=== PATIENT | male | born 1970 | race African-American/Black ===

== ENCOUNTER 2024-01-23 16:35 | Emergency (ER) | payer MEDICAID ==
[~2024-01-23] VITALS: Ht 180.3 cm; Wt 90.0 kg
[2024-01-23 16:53] VITALS: BP 170/104; PULSE 80; RESP 18; TEMP 98
[2024-01-23] MEDS: HYDROCODONE/ACETAMINOPHEN 5/325MG TABLET PO ONE (17:26)
[2024-01-23] MEDS: BACITRACIN ZINC OINT UDPKT TOP ONE (17:28)
[2024-01-23] MEDS: LIDOCAINE HCL/PF 1% 10 MG/ML 5ML VIAL INFIL ONE (18:17)
[2024-01-23] MEDS: TETANUS, DIPHTHERIA, PERTUSSIS VAC/PF 0.5ML (>10YR OLD) IM ONE (18:20)
[2024-01-23] MEDS ORDERED: CEPH500T MT (19:03)
[2024-01-23] MEDS ORDERED: IBUP-2029 MT (19:03)
[2024-01-23] MEDS ORDERED: BO1 TP (19:03)
== END 2024-01-23 19:56 | disposition home or self-care (01) ==
LOC: ER 16:35
DX: S61.211A Laceration without foreign body of left index finger without damage to nail, initial encounter (principal); I10 Essential (primary) hypertension; W26.8XXA Contact with other sharp object(s), not elsewhere classified, initial encounter; Y93.89 Activity, other specified; Y92.89 Other specified places as the place of occurrence of the external cause; Y99.8 Other external cause status
CPT/HCPCS: 73130; 90715; 12004; 90471; 99283; J3490; Z7610 ×2

== ENCOUNTER 2024-01-25 15:41 | Emergency (ER) | payer MEDICAID ==
[~2024-01-25] VITALS: Ht 172.7 cm; Wt 75.0 kg
[~2024-01-25 15:41] MED LIST: BO1 TP; CEPH500T MT; IBUP-2029 MT
[2024-01-25 15:47] VITALS: PULSE 64
[2024-01-25 15:50] VITALS: BP 173/95; RESP 18; TEMP 98.2; O2SAT 99
== END 2024-01-25 19:10 | disposition home or self-care (01) ==
LOC: ER 15:53
DX: S61.411D Laceration without foreign body of right hand, subsequent encounter (principal); I10 Essential (primary) hypertension; X58.XXXD Exposure to other specified factors, subsequent encounter
CPT/HCPCS: 99281

== ENCOUNTER 2024-02-02 21:40 | Inpatient (IN) | payer MEDICAID ==
[~2024-02-02] VITALS: Ht 180.3 cm; Wt 81.8 kg
[2024-02-02 20:00] VITALS: BP 133/83; PULSE 92; RESP 18; TEMP 99
[2024-02-02 22:30] VITALS: BP 133/83; PULSE 92; RESP 18; TEMP 99
[2024-02-03] MEDS ORDERED: IPRATROPIUM/ALBUTEROL 0.5-3(2.5)MG/3ML NEB HHN PRN (00:45)
[2024-02-03] MEDS ORDERED: CLONIDINE 0.1MG TABLET PO PRN (00:45)
[2024-02-03] MEDS ORDERED: ACETAMINOPHEN 325MG TABLET PO PRN ×2 (00:45)
[2024-02-03] MEDS ORDERED: MAGNESIUM/ALUMINUM HYDROXIDE/SIMETHICONE 30ML UDC PO PRN (00:45)
[2024-02-03] MEDS ORDERED: ONDANSETRON HCL 4MG/2ML INJ IV PRN (00:45)
[2024-02-03] MEDS: HYDRALAZINE HCL 100MG TABLET PO SCH (06:17)
[2024-02-03 07:02] LABS: CARBON DIOXIDE 26 mEq/L (21-32); CHLORIDE 100 mEq/L (98-107); POTASSIUM 3.8 mEq/L (3.5-5.1); SODIUM 134 mEq/L (136-145)
[2024-02-03 07:03] LABS: BASOPHILS % 1.3 % (0.0-2.0); CALCIUM 9.1 mg/dL (8.7-10.4); DIFFERENTIAL COMMENT 0; EOSINOPHILS % 0.8 % (0.0-5.0); HEMATOCRIT. 42.2 % (42.0-52.0); HEMOGLOBIN. 13.5 g/dL (14.0-18.0); LYMPHOCYTES % 27.6 % (20.0-50.0); MEAN CORPUSCULAR HEMOGLOBIN 22.9 pg (28.0-32.0); MEAN CORPUSCULAR HGB CONC 32.1 g/dL (31.0-37.0); MEAN CORPUSCULAR VOLUME 71.2 fL (80.0-94.0); MEAN PLATELET VOLUME 7.7 fl (7.4-10.4); MONOCYTES % 13.6 % (2.0-8.0); NEUTROPHILS % 56.7 % (40.0-76.0); PLATELET 289 x1000/uL (130-400); RED BLOOD CELL COUNT 5.92 mill/uL (4.7-6.1); RED CELL DISTRIBUTION WIDTH 14.9 % (11.6-14.6); WHITE BLOOD COUNT 5.2 x1000/uL (4.5-11.0)
[2024-02-03 07:07] LABS: CREATININE 1.2 mg/dL (0.6-1.3)
[2024-02-03 07:08] LABS: GLUCOSE 104 mg/dL (70-105); UREA NITROGEN BLOOD 21 mg/dL (9-23)
[2024-02-03 07:09] LABS: ALANINE AMINOTRANSFERASE 38 IU/L (10-49); ALBUMIN 4.3 g/dL (3.2-4.8)
[2024-02-03 07:10] LABS: ASPARTATE AMINOTRANSFERASE 26 IU/L (<34); BILIRUBIN TOTAL 0.6 mg/dL (0.1-1.0); PROTEIN TOTAL 6.9 g/dL (6.0-8.3)
[2024-02-03 08:00] VITALS: BP 163/103; PULSE 108; RESP 19; TEMP 98.2
[2024-02-03] MEDS: CLOPIDOGREL 75MG TABLET PO SCH (09:05)
[2024-02-03] MEDS: ASPIRIN 81MG EC TABLET PO SCH (09:05)
[2024-02-03] MEDS: AMLODIPINE 10MG TABLET PO SCH (09:05)
[2024-02-03] MEDS: HYDROCHLOROTHIAZIDE 25MG TABLET PO SCH (09:05)
[2024-02-03] MEDS: FAMOTIDINE 20MG TABLET PO SCH (09:05)
[2024-02-03] MEDS: ISOSORBIDE MONONITRATE 60MG TABLET SR 24HR PO SCH (09:06)
[2024-02-03 19:59] VITALS: BP 155/100; PULSE 94; RESP 19; TEMP 97.1
[2024-02-03] MEDS: ATORVASTATIN CALCIUM 40MG TABLET PO SCH (21:41)
[2024-02-04 08:00] VITALS: BP 147/88; PULSE 96; RESP 20; TEMP 98.2
[2024-02-04 20:00] VITALS: BP 155/97; PULSE 83; RESP 18; TEMP 97.5
[2024-02-05 08:00] VITALS: BP 135/88; PULSE 88; RESP 18; TEMP 98.1
[2024-02-05 20:00] VITALS: BP 140/85; PULSE 84; RESP 18; TEMP 97.5
[2024-02-06 08:00] VITALS: BP 138/88; PULSE 87; RESP 18; TEMP 98.3
[2024-02-06 20:00] VITALS: BP 156/89; PULSE 85; RESP 20; TEMP 96.9
[2024-02-07 08:00] VITALS: BP 140/91; PULSE 88; RESP 18; TEMP 97.1
[2024-02-07 14:06] VITALS: BP 121/77; PULSE 75
[2024-02-07 20:00] VITALS: BP 146/90; PULSE 79; RESP 18; TEMP 97.7
[2024-02-08 08:00] VITALS: BP 147/92; PULSE 64; RESP 20; TEMP 98.1
[2024-02-08] MEDS: DOCUSATE SODIUM 100MG CAPSULE PO SCH (11:36)
[2024-02-08 20:00] VITALS: BP 134/91; PULSE 84; RESP 18; TEMP 99.1
[2024-02-09 08:00] VITALS: BP 143/96; PULSE 86; RESP 18; TEMP 96.8
[2024-02-09 20:00] VITALS: BP 145/95; PULSE 77; RESP 18; TEMP 97
[2024-02-10 08:00] VITALS: BP 136/95; PULSE 94; RESP 18; TEMP 97.9
[2024-02-10 20:00] VITALS: BP 143/95; PULSE 82; RESP 18; TEMP 97.3
[2024-02-11 08:00] VITALS: BP 146/97; PULSE 107; RESP 18; TEMP 99.1
[2024-02-11 19:41] VITALS: BP 137/90; PULSE 80; RESP 20; TEMP 98.1
[2024-02-12 08:00] VITALS: BP 131/86; PULSE 78; RESP 18; TEMP 97.7
[2024-02-12 20:15] VITALS: BP 130/89; PULSE 78; RESP 18; TEMP 97.2
[2024-02-13 08:00] VITALS: BP 127/91; PULSE 97; RESP 16; TEMP 99.1
[2024-02-13 08:44] VITALS: BP 127/91; PULSE 81; TEMP 99.1; O2SAT 97
[2024-02-13] MEDS ORDERED: HYDR100T26 PO (08:51)
[2024-02-13] MEDS ORDERED: FAMO20TA8 PO (08:51)
[2024-02-13] MEDS ORDERED: AMLO10TA80 PO (08:51)
[2024-02-13] MEDS ORDERED: CLOP-31 PO (08:51)
[2024-02-13] MEDS ORDERED: ASPI-1406 PO (08:51)
[2024-02-13] MEDS ORDERED: ISOS60TA76 PO (08:51)
[2024-02-13] MEDS ORDERED: HYDR25TA PO (08:51)
[2024-02-13] MEDS ORDERED: LIP40 PO (08:51)
== END 2024-02-13 09:47 | disposition home health service (06) | DRG 45 ==
PROVIDERS: ADMIT Psychiatry & Neurology Neurology; ATTEND Internal Medicine
DX: I63.89 Other cerebral infarction (principal); I67.4 Hypertensive encephalopathy; D62 Acute posthemorrhagic anemia; E83.39 Other disorders of phosphorus metabolism; E87.1 Hypo-osmolality and hyponatremia; L97.828 Non-pressure chronic ulcer of other part of left lower leg with other specified severity; G62.9 Polyneuropathy, unspecified; I10 Essential (primary) hypertension; E78.00 Pure hypercholesterolemia, unspecified; R13.10 Dysphagia, unspecified; I16.9 Hypertensive crisis, unspecified; E87.6 Hypokalemia; M75.00 Adhesive capsulitis of unspecified shoulder; S61.411A Laceration without foreign body of right hand, initial encounter; X99.1XXA Assault by knife, initial encounter; R26.2 Difficulty in walking, not elsewhere classified; H53.8 Other visual disturbances; R31.9 Hematuria, unspecified; E83.42 Hypomagnesemia; S80.212A Abrasion, left knee, initial encounter; M75.02 Adhesive capsulitis of left shoulder; Z86.73 Personal history of transient ischemic attack (TIA), and cerebral infarction without residual deficits; Z91.148 Patient's other noncompliance with medication regimen for other reason; Z79.899 Other long term (current) drug therapy; Y93.89 Activity, other specified; Y92.89 Other specified places as the place of occurrence of the external cause; Y99.8 Other external cause status; Z91.81 History of falling
CPT/HCPCS: 36415; 80048; 80053; 85025; 92523; 92610; 97110; 97112; 97116; 97150; 97162; 97166; 97530; 97535; A6261; C1893